=== PATIENT | female | born 1975 | race Caucasian/White ===

== ENCOUNTER 2019-04-20 14:57 | Emergency (ER) | payer MEDICAID ==
[2019-04-20] MEDS ORDERED: fentaNYL 100 MCG/2 ML SDV IVPUSH ONE ×2 (15:35→16:46)
[2019-04-20] MEDS ORDERED: Sodium Chloride 0.9% 10 ML Syringe FLUSH PRN (15:36)
[2019-04-20] MEDS ORDERED: Sodium Chloride 0.9% 1,000 ML IV SCH (15:45)
--- NOTE | 2019-04-20 15:47 | EDM.PDOC ---
ED HPI GENERAL MEDICAL PROBLEM - General Chief Complaint: Upper Extremity Injury/Pain Stated Complaint: DISLOCATED SHOULDER Time Seen by Provider: 04/20/19 15:10 Source of Information: Reports: Patient, RN Notes Reviewed History Limitations: Reports: No Limitations - History of Present Illness INITIAL COMMENTS - FREE TEXT/NARRATIVE: 43-year-old female presents emergency department today complaint of shoulder dislocation on the right side, she states she's had plus 20 shoulder dislocations over her lifetime last one was approximately one year ago she did this today while she was putting on her shirt. Right Shoulder Pain Score (Numeric/FACES): 7 - Related Data Allergies Allergy/AdvReac Type Severity Reaction Status Date / Time No Known Allergies Allergy Verified 04/20/19 15:18 Home Meds: Home Meds NK [No Known Home Meds] 04/20/19 [History] Past Medical History HEENT History: Reports: Other (See Below) Other HEENT History: throat infection Musculoskeletal History: Reports: Other (See Below) Other Musculoskeletal History: chronic shoulder dislocations - Past Surgical History Head Surgeries/Procedures: Reports: None HEENT Surgical History: Reports: None Musculoskeletal Surgical History: Reports: None Dermatological Surgical History: Reports: None Social & Family History - Tobacco Use Smoking Status *Q: Former Smoker Years of Tobacco use: 15 Packs/Tins Daily: 0.5 Used Tobacco, but Quit: Yes Month/Year Tobacco Last Used: 2013 Second Hand Smoke Exposure: No - Caffeine Use Caffeine Use: Reports: Coffee, Tea - Recreational Drug Use Recreational Drug Use: No Review of Systems - Review of Systems Review Of Systems: See Below Musculoskeletal: Reports: Shoulder Pain ED EXAM, GENERAL - Physical Exam Exam: See Below Free Text/Narrative:: Examination of the right shoulder she does have a propped up exam is limited secondary to pain radial pulses +2 Exam Limited By: No Limitations General Appearance: Alert, WD/WN, No Apparent Distress Course - Vital Signs Last Recorded V/S: Last Vital Signs Temp 98.1 F 04/20/19 15:15 Pulse 65 04/20/19 17:15 Resp 18 04/20/19 17:15 BP 113/70 04/20/19 17:15 Pulse Ox 94 L 04/20/19 17:15 - Orders/Labs/Meds Orders: Active Orders 24 hr Category Date Time Status Peripheral IV Care [RC] . DIRECTED Care 04/20/19 15:36 Active Shoulder Comp Rt [CR] Stat Exams 04/20/19 16:45 Ordered Sodium Chloride 0.9% [Normal Saline] 1,000 ml Med 04/20/19 15:45 Active IV ASDIRECTED Sodium Chloride 0.9% [Saline Flush] Med 04/20/19 15:36 Active 10 ml FLUSH ASDIRECTED PRN Peripheral IV Insertion Adult [OM.PC] Urgent Oth 04/20/19 15:35 Ordered Medication Orders Sodium Chloride (Normal Saline) 1,000 mls @ 100 mls/hr IV ASDIRECTED PIOTR Last Admin: 04/20/19 16:00 Dose: 100 mls/hr Sodium Chloride (Saline Flush) 10 ml FLUSH ASDIRECTED PRN PRN Reason: Keep Vein Open Last Admin: 04/20/19 16:58 Dose: 10 ml Meds: Medications Generic Name Dose Route Start Last Admin Trade Name Freq PRN Reason Stop Dose Admin Sodium Chloride 1,000 mls @ 100 mls/hr 04/20/19 15:45 04/20/19 16:00 Normal Saline IV 100 mls/hr ASDIRECTED PIOTR Administration Sodium Chloride 10 ml 04/20/19 15:36 04/20/19 16:58 Saline Flush FLUSH 10 ml ASDIRECTED PRN Administration Keep Vein Open Discontinued Medications Generic Name Dose Route Start Last Admin Trade Name Freq PRN Reason Stop Dose Admin Fentanyl 50 mcg 04/20/19 15:35 04/20/19 15:55 Sublimaze IVPUSH 04/20/19 15:36 50 mcg ONETIME ONE Administration Fentanyl 100 mcg 04/20/19 16:46 04/20/19 17:01 Sublimaze IVPUSH 04/20/19 16:47 100 mcg ONETIME ONE Administration Propofol Confirm 04/20/19 17:17 Diprivan 20 Ml Administered 04/20/19 17:18 Dose 200 mg .ROUTE .STK-MED ONE Departure - Departure Time of Disposition: 17:36 Disposition: Home, Self-Care 01 Condition: Fair Clinical Impression: Dislocation of right shoulder joint Qualifiers: Encounter type: initial encounter Qualified Code(s): S43.004A - Unspecified dislocation of right shoulder joint, initial encounter - Discharge Information Referrals: PCP,None [Primary Care Provider] - Forms: ED Department Discharge Additional Instructions: Use Tylenol or Motrin as needed for pain control, please follow-up with orthopedics for further evaluation, call return to the emergency department worsening of symptoms - My Orders Last 24 Hours: My Active Orders 04/20/19 15:35 Peripheral IV Insertion Adult [OM.PC] Urgent 04/20/19 15:36 Peripheral IV Care [RC] . DIRECTED Sodium Chloride 0.9% [Saline Flush] 10 ml FLUSH ASDIRECTED PRN 04/20/19 15:45 Sodium Chloride 0.9% [Normal Saline] 1,000 ml IV ASDIRECTED 04/20/19 16:45 Shoulder Comp Rt [CR] Stat - Assessment/Plan Last 24 Hours: My Active Orders 04/20/19 15:35 Peripheral IV Insertion Adult [OM.PC] Urgent 04/20/19 15:36 Peripheral IV Care [RC] . DIRECTED Sodium Chloride 0.9% [Saline Flush] 10 ml FLUSH ASDIRECTED PRN 04/20/19 15:45 Sodium Chloride 0.9% [Normal Saline] 1,000 ml IV ASDIRECTED 04/20/19 16:45 Shoulder Comp Rt [CR] Stat Plan: Assessment Acuity = acute Site and laterality = anterior right shoulder dislocation Etiology = secondary to chronic dislocations Manifestations = none Location of injury = Home Lab values = initial x-ray shows anterior dislocation, post x-ray pending Plan Called discussed case with Dr. Traore at 1700 he kindly agreed to come and evaluate the patient emergency department, he was able to reduce the shoulder with anesthesia please see his notes for details, she will follow up with him and later date This note was dictated using [employer] voice recognition software please call with any questions on syntax or grammar.
--- NOTE | 2019-04-20 16:35 | CRLCR ---
INDICATION: DISLOCATION, PATIENT UNABLE TO BRING ARM DOWN INDICATION: Dislocation TECHNIQUE: Single-view right shoulder COMPARISON: None FINDINGS: Bones: Alignment is normal. No fractures or bone lesions. Joint spaces: Overlap of the humeral head and osseous glenoid consistent with dislocation. Difficult to ascertain if this is dislocated anterior or posteriorly without a Y or axillary view. Soft tissues: Unremarkable. IMPRESSION: Overlap of the humeral head and osseous glenoid consistent with dislocation. Difficult to ascertain if this is dislocated anterior or posteriorly without a Y or axillary view. Post reduction views recommended. Dictated by Adriel Sosa MD @ 04/20/2019 4:33:42 PM Dictated by: Adriel Sosa MD @ 04/20/2019 16:33:50 (Electronically Signed)
[2019-04-20] MEDS ORDERED: Propofol 200 MG/20 ML SDV ONE (17:17)
--- NOTE | 2019-04-20 17:53 | PCM.CONS ---
H&P History of Present Illness - General Date of Service: 04/20/19 Source of Information: Patient History Limitations: Reports: No Limitations - History of Present Illness Initial Comments - Free Text/Narative: 43 year old left hand dominant female presented to ED with right shoulder pain and limited ROM. According to patient she has a history of multiple dislocations beginning in high school. By her count it has been dislocation approximately 20 times over the past 20+ years. Some dislocations have been posterior. Today's event occurred while putting on a shirt. She reports that she has intended to have it fixed but has never quite gotten around to doing it. 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 No new trauma, no tingling or numbness. Onset of Symptoms: Reports: Today, Sudden Duration of Symptoms: Reports: Constant Location: Reports: Upper Extremity, Right Quality: Reports: Stabbing Severity: Severe Associated Symptoms: Reports: No Other Symptoms Right Shoulder Pain Score (Numeric/FACES): 7 - Related Data Allergies/Adverse Reactions: Allergies Allergy/AdvReac Type Severity Reaction Status Date / Time No Known Allergies Allergy Verified 04/20/19 15:18 Home Medications: Home Meds NK [No Known Home Meds] 04/20/19 [History] Past Medical History HEENT History: Reports: Other (See Below) Other HEENT History: throat infection Musculoskeletal History: Reports: Other (See Below) Other Musculoskeletal History: chronic shoulder dislocations Psychiatric History: Reports: None - Past Surgical History Head Surgeries/Procedures: Reports: None HEENT Surgical History: Reports: None Musculoskeletal Surgical History: Reports: None Dermatological Surgical History: Reports: None Social & Family History - Tobacco Use Smoking Status *Q: Former Smoker Years of Tobacco use: 15 Packs/Tins Daily: 0.5 Used Tobacco, but Quit: Yes Month/Year Tobacco Last Used: 2013 Second Hand Smoke Exposure: No - Caffeine Use Caffeine Use: Reports: Coffee, Tea - Recreational Drug Use Recreational Drug Use: No H&P Review of Systems - Review of Systems: Review Of Systems: ROS reveals no pertinent complaints other than HPI. Exam - Exam Exam: See Below - Vital Signs Vital Signs: Last Vital Signs Temp 36.7 C 04/20/19 15:15 Pulse 65 04/20/19 17:15 Resp 18 04/20/19 17:15 BP 113/70 04/20/19 17:15 Pulse Ox 94 L 04/20/19 17:15 Weight: 76.1 kg - Exam General: Alert, Oriented, 4 Extremities: Other (Right arm held abducted and slightly externally rotated, able to move all digits, wrist and elbow, sensation intact.) Peripheral Pulses: 2+: Radial (R) Skin: Warm, Dry, Intact Neuro Extensive - Mental Status: Alert, Oriented x3, Normal Mood/Affect, Normal Cognition Psychiatric: Alert, Normal Affect, Normal Mood Consult PN Assessment/Plan Procedures: Closed reduction right shoulder (1) Dislocation of right shoulder joint SNOMED Code(s): 469360887 Code(s): S43.004A - UNSPECIFIED DISLOCATION OF RIGHT SHOULDER JOINT, INIT ENCNTR Current Visit: Yes Qualifiers: Encounter type: initial encounter Qualified Code(s): S43.004A - Unspecified dislocation of right shoulder joint, initial encounter Problem List Initiated/Reviewed/Updated: Yes Plan: X-rays and exam consistent with anterior dislocation. Shoulder reduced under conscious sedation without difficulty. Placed into a sling. Exam under sedation consistent with multidirectional instability. She should avoid overhead activity and external rotation. She is instructed to call the Ortho clinic for a follow up in the next two weeks, an appointment card is provided with the clinic phone number. Prescription for [place] 5/325mg #12 is provided.
--- NOTE | 2019-04-20 18:29 | CRLCR ---
INDICATION: Status post reduction. COMPARISON: From earlier today at 1558 hours TECHNIQUE: The right shoulder was examined with a single AP view. FINDINGS: The osseous structures are in anatomic alignment without fracture or dislocation. There is anatomic alignment of the humeral head and glenoid on this single view. The visualized chest is clear. IMPRESSION: Satisfactory appearance status post reduction of the shoulder on a single AP view. Dictated by Navneet Smith MD @ Apr 20 2019 6:26PM Signed by Dr. Navneet Smith @ Apr 20 2019 6:28PM
--- NOTE | 2019-04-21 00:11 | OR ---
DATE OF PROCEDURE: 04/20/2019 PREOPERATIVE DIAGNOSIS: Recurrent dislocation right shoulder, anterior. POSTOPERATIVE DIAGNOSES: 1. Recurrent dislocation right shoulder, anterior. 2. Multidirectional instability, right shoulder. PROCEDURE: Closed reduction right shoulder dislocation. ANESTHESIA: Conscious sedation. INDICATIONS: This is a 43-year-old left-hand dominant female, who presents to the emergency room with sudden onset of right shoulder pain and limited range of motion. She has history of multiple dislocations of the right shoulder. She reports that this has occurred approximately 20 times beginning in high school. Last event was a little over a year ago. Today's incident occurred while she was putting on a shirt. Presents to the emergency room with the arm abducted and slightly externally rotated. AP and Y-view are consistent with anterior shoulder dislocation as is her exam with sulcus sign posteriorly. DESCRIPTION OF PROCEDURE: After adequate discussion regarding risks, benefits, potential complications of closed reduction with sedation, sedation was administered by the [facility] anesthesia department, NA. After adequate sedation, gentle longitudinal traction was placed on the arm and with a slight internal rotation maneuver the shoulder was reduced without difficulty. While under sedation, further examination revealed multidirectional instability. The humeral head could be translated greater than 50% of the distance of the glenoid both anteriorly and posteriorly. Positive sulcus sign is present. Examination of her opposite shoulder also revealed instability, but not nearly as severe as the right. After reduction was confirmed with scientology of full range of motion, arm was placed into a sling and an AP x-ray was obtained. The patient tolerated the procedure very well and there were no complications. The patient should continue with the sling and avoid external rotation for the next 2 weeks. She should also be careful with any overhead activity and avoid abduction and external rotation. An appointment card is provided with the phone number to call for an appointment within the next 2 weeks. Vance Traore MD /[id number]
--- NOTE | 2019-04-21 09:27 | ANES ---
DATE OF SERVICE: 04/21/2019 I was called to the emergency room by Dr. Traore to evaluate Ms. Staley for a closed reduction of the right shoulder. The risks and benefits of the procedure were explained to the patient. She wished to proceed. I did give her a total of 200 [address] of [address] and [address] Traore performed the reduction with ease. Rajesh Quiroz CRNA /[id number]
== END 2019-04-20 18:15 | disposition home or self-care (01) ==
LOC: JP.ED 14:57
DX: M24.411 Recurrent dislocation, right shoulder (principal); Z87.891 Personal history of nicotine dependence
CPT/HCPCS: 23650; 73020; 96361; 96374; 96376; 99283; J2704; J3010; J7030